=== PATIENT | male | born 1980 | race African-American/Black ===

== ENCOUNTER → 2019-12-31 | Outpatient (CLI) | payer OTHER | LOC: CAT 13:01 | PROVIDERS: ATTEND Internal Medicine Cardiovascular Disease | DX: Z13.6 Encounter for screening for cardiovascular disorders (principal); I25.10 Atherosclerotic heart disease of native coronary artery without angina pectoris; E78.00 Pure hypercholesterolemia, unspecified ==

== ENCOUNTER → 2020-01-20 | Outpatient (CLI) | payer OTHER | LOC: SJCVC 01-12 07:43 → SJCVCIMAG 07:11 → SJCVC 08:45 → SJCVCIMAG 15:52 | PROVIDERS: ATTEND Internal Medicine Cardiovascular Disease | DX: R53.83 Other fatigue (principal); R00.2 Palpitations; R07.9 Chest pain, unspecified; Z82.49 Family history of ischemic heart disease and other diseases of the circulatory system ==